=== PATIENT | female | born 1980 | race Caucasian/White ===

== ENCOUNTER 2024-07-26 20:41 | Emergency (ER) | payer MEDICAID, SELFPAY ==
[2024-07-26 21:31] VITALS: BP 130/81; PULSE 72; RESP 18; TEMP 37; O2SAT 100
--- NOTE | 2024-07-26 21:40 | EDNOTE_ITS ---
<Statement entered by Talita Hernandez MD - 08/06/24 11:51> As co-signing physician, I was present and available for consult prn. I concur with the plan and care as documented by the midlevel provider. ED Dental RME/HPI General Chief complaint: Dental/Oral/Throat Stated complaint: TOOTACHE Time Seen by Provider: 07/26/24 21:38 Source: patient Arrival date/time: 07/26/24 20:41 43-year-old female presents emergency department complaining of tooth infection that is been ongoing for several days and is awaiting visit with dentist. Mode of arrival: ambulatory Limitations: no limitations Related Data Previous Rx's ?Medication ?Instructions ?Recorded amoxicillin 875 mg-potassium 1 tab PO BID 7 days #14 tabs 07/26/24 clavulanate 125 mg tablet ibuprofen 600 mg tablet 600 mg PO Q8H PRN pain #20 tabs 07/26/24 Allergies Allergy/AdvReac Type Severity Reaction Status Date / Time tramadol Allergy Verified 07/26/24 20:45 Review of Systems Review of Systems Systems Reviewed: All systems reviewed, normal except as documented Constitutional Constitutional: Reports system reviewed and no additional complaints, except as documented, Denies body ache(s), Denies chills and Denies fever(s) Eyes Eyes: Reports system reviewed and no additional complaints, except as documented and Denies change in vision ENT Ears, Nose, Mouth, and Throat: Reports system reviewed and no additional complaints, except as documented, Denies disequilibrium, Denies dizziness, Reports mouth pain, Denies sore throat, Denies vertigo and Reports other (tooth pain) Cardiovascular Cardiovascular: Reports system reviewed and no additional complaints, except as documented, Denies chest pain and Denies dyspnea Respiratory Respiratory: Reports system reviewed and no additional complaints, except as documented, Denies chest congestion, Denies cough and Denies dyspnea Gastrointestinal Gastrointestinal: Reports system reviewed and no additional complaints, except as documented, Denies abdominal pain, Denies nausea and Denies vomiting Musculoskeletal Musculoskeletal: Reports system reviewed and no additional complaints, except as documented, Denies abnormal gait and Denies arthralgias Integumentary/Breasts Skin/Breast: Reports system reviewed and no additional complaints, except as documented, Denies erythema, Denies rash and Denies wounds Neurologic Neurologic: Reports system reviewed and no additional complaints, except as documented, Denies abnormal gait, Denies disequilibrium, Denies dizziness and Denies vertigo Past Medical History Social History SMOKING STATUS: Current every day smoker ED Exam General Limitations: Present no limitations General appearance: Present alert and in no apparent distress Head Head exam: Present atraumatic Eye Eye exam: Present normal appearance, PERRL and EOMI ENT ENT exam: Present normal exam, normal oropharynx and mucous membranes moist Expanded ENT Exam Teeth exam: Present dental caries and gingival swelling Neck Neck exam: Present normal inspection, full ROM and trachea midline Chest Chest inspection: Present normal inspection and symmetric chest wall rise Respiratory Respiratory exam: Present normal lung sounds bilaterally Cardiovascular Cardiovascular exam: Present regular rate, normal rhythm and normal heart sounds Abdominal Exam Abdominal exam: Present soft and normal bowel sounds Extremities Exam Extremities exam: Present normal inspection and full ROM Back Exam Back exam: Present normal inspection and full ROM Neurological Exam Neurological exam: Present alert, oriented X3 and CN II-XII intact Psychiatric Psychiatric exam: Present normal affect and normal mood Skin Skin exam: Present warm, dry, intact and normal color Course Quality Measures none Orders Category Date Time Status Amoxicillin/Pot Clav 875 [Augmentin 875] Med 07/26/24 21:41 Discontinued 1 tab PO X1 ONE Ketorolac Inj [Toradol Inj] Med 07/26/24 21:41 Discontinued 30 mg IM X1 ONE Vital Signs Vital signs: Vital Signs Temperature 98.6 F 07/26/24 21:31 Pulse Rate 72 07/26/24 21:31 Respiratory Rate 18 07/26/24 21:31 Blood Pressure 130/81 07/26/24 21:31 Pulse Oximetry (%) 100 07/26/24 21:31 Oxygen Delivery Method Room Air 07/26/24 21:31 100% room air within normal limits Dental / Oral MDM Narrative MDM Narrative:: 43-year-old female presents emergency department complaining of tooth infection that is been ongoing for several days and is awaiting visit with dentist. Patient appears nontoxic and hemodynamically stable. On exam patient does have dental caries with gingival swelling from infected tooth. Patient given antibiotics instructed to follow-up with dentist upon discharge and return to emergency department for any worsening symptoms or as needed. Patient data External records reviewed:: [facility] previous records Clinical information provided by:: patient Social determinants that could affect healthcare access:: none Patient has the following chronic illnesses:: See chart How is presenting disease/condition affected by chronic disease/condition?: uneffected by Evaluation data The following diagnostics were reviewed and interpreted by me:: other (specify) (N/A) Lab and/or radiology exams considered but not ordered:: N/A Interpretation Summary: N/A Medications / Prescriptions Medications or Prescriptions considered but not ordered:: Ordered Medication administrations:: Medication Administration History Discontinued Medications Amoxicillin/Clavulanate Potassium (Amoxicillin/Pot Clav 875 Tablet) 1 tab PO X1 ONE Stop: 07/26/24 21:42 Last Admin: 07/26/24 22:06 Dose: 1 tab Documented By: Ketorolac Tromethamine (Ketorolac Inj 60 Mg/2 Ml Vial) 30 mg IM X1 ONE Stop: 07/26/24 21:42 Last Admin: 07/26/24 22:06 Dose: 30 mg Documented By: Given Consultations Consultation(s) initiated? (list below): No Diagnosis Dental Differential Diagnosis: gingival abscess, dental caries, toothache, dental abscess, fracture of tooth and aphthous ulcer Most likely diagnosis given after review of the tests above:: Infected tooth Admission Indicated Admission indicated?: not indicated Admission Request Was there a request for admission?: No Disposition Plan Disposition Plan: Discharge Discharge Attestation Discharge Attestation: The patient and all family members were given an opportunity to ask questions and understood the discharge instructions. Discharge instructions specifically effects, indications for sooner follow up or return to the emergency department, and the expected course of current diagnosis. Patient condition: Stable Discharge Plan Plan Patient Disposition: HOME (Self Care) Disposition Comment: Stable Prescriptions/Referrals Prescriptions/Med Rec: New amoxicillin-pot clavulanate 875-125 mg tablet 1 tab PO BID 7 Days Qty: 14 0RF ibuprofen 600 mg tablet 600 mg PO Q8H PRN (Reason: pain) Qty: 20 0RF Problem List Clinical Impression: Infected tooth Patient/Caregiver Discharge Instructions Discharge Activity: activity as tolerated Education Materials: ED Dental Abscess Additional Instructions: Take medication as prescribed. Follow-up with dentist as discussed upon discharge. Return to emergency department for any worsening symptoms or as needed. Print Language: French Stand Alone Forms: [employer] Award Info., Patient Portal Info Letter PA/BRANDS EDITOR Supervising Physician PA/BRANDS EDITOR Supervising Physician: Dr. Hernandez
[2024-07-26] MEDS: AMOXICILLIN/POT CLAV 875 TABLET 1 TAB PO (22:06)
[2024-07-26] MEDS: KETOROLAC INJ 60 MG/2 ML VIAL 30 MG IM (22:06)
== END 2024-07-26 22:15 | disposition home or self-care (01) ==
LOC: SERX 22:19
PROVIDERS: Emergency Provider Emergency Medicine; PCP Family Medicine
DX: K04.7 Periapical abscess without sinus (principal)
CPT/HCPCS: 96372; 99283; J1885; A9270

== ENCOUNTER 2024-11-30 22:35 | Emergency (ER) | payer MEDICAID, SELFPAY ==
[2024-11-30 22:38] VITALS: BMI 39.1
--- NOTE | 2024-11-30 23:05 | PD.EDDENTL ---
ED Dental RME/HPI General Chief complaint: Dental/Oral/Throat Stated complaint: TOOTHACHE Time Seen by Provider: 11/30/24 23:01 Arrival date/time: 11/30/24 22:35 43 year old female present to emergency room with c/o of dental pain for 1 day. LOCATION: teeth SEVERITY: Symptoms are described as being severe with limitations on activities of daily living CONTEXT: The patient is unable to identify any inciting events. DURATION/TIMING: The symptoms started approximately 1 day ASSOCIATED SYMPTOMS: The patient is unable to identify any other associated symptoms. MODIFYING FACTORS: The patient is unable to identify any alleviating or aggravating symptoms. Patient denies fever, chills, difficulty swallowing, shortness of breath, voice changes, sore throat REVIEW OF SYSTEMS: See History of Present Illness - with the exception of those mentioned in the history of present illness, all other systems reviewed and reported as negative GENERAL: In general the patient is awake, interactive, in an emergency department gurney. HEAD/EYES/EARS/NOSE/THROAT: teeth/gingva poor condition. normo-cephalic, atraumatic, mucus membranes are moist, anicteric, palpebral conjunctiva is pink, trachea is midline. NEUROLOGICAL: cranio-facial features are symmetric, moves all four extremities equally without obvious limitations or weakness. EXTREMITY: no tenderness to palpation over the long bones or large joints of the bilateral upper and lower extremities, no joint swelling, no joint erythema, no signs of trauma, no unilateral leg swelling and no peripheral edema. SKIN: warm, dry, well-perfused, no jaundice, no rash, no telangiectasias or petechia. PSYCH: calm, cooperative, no evidence of psychosis or agitation Related Data Previous Rx's ?Medication ?Instructions ?Recorded ibuprofen 600 mg tablet 600 mg PO Q8H PRN pain #20 tabs 07/26/24 clindamycin HCl 300 mg capsule 300 mg PO Q6H 10 days #40 caps 11/30/24 (Cleocin HCl) Allergies Allergy/AdvReac Type Severity Reaction Status Date / Time tramadol Allergy Verified 11/30/24 22:36 Course Course Course Narrative: Presentation consistent with dental pain of tooth right lower? No evidence of Chriss's Angina, large abscess pocket, requirement for emergent extraction, or other complications. Provided prescription for clindamycin Patient informed to follow up with local dentist. Return to ER if pain uncontrolled, abscess that drains purulent fluid, high fevers, trouble swallowing, or other concerns.? Plan:? Discharge from ED? F/U with local dentist Informed to return to ED if has new or worsening symptoms. Expressed understanding of and agreement with plan and all questions answered. Quality Measures none Orders Category Date Time Status ACETAMINOPHEN w/COD 300-30 [Tylenol w/Cod #3] Med 11/30/24 23:13 Once 1 tab PO X1 ONE Clindamycin [Cleocin] Med 11/30/24 23:13 Once 300 mg PO X1 ONE Vital Signs Vital signs: Vital Signs Temperature 98.2 F 11/30/24 23:06 Pulse Rate 97 11/30/24 23:06 Respiratory Rate 18 11/30/24 23:06 Blood Pressure 128/85 H 11/30/24 23:06 Pulse Oximetry (%) 98 11/30/24 23:06 Oxygen Delivery Method Room Air 11/30/24 23:06 Dental / Oral Patient data External records reviewed:: [facility] previous records Clinical information provided by:: patient Social determinants that could affect healthcare access:: none Patient has the following chronic illnesses:: dental problems How is presenting disease/condition affected by chronic disease/condition?: exacerbated by Evaluation data The following diagnostics were reviewed and interpreted by me:: other (specify) (na) Lab and/or radiology exams considered but not ordered:: na Interpretation Summary: na Medications / Prescriptions Medications or Prescriptions considered but not ordered:: na Medication administrations:: Medication Administration History Acetaminophen/Codeine Phosphate (Acetaminophen W/Cod 300-30 Tablet) 1 tab PO X1 ONE Stop: 11/30/24 23:14 Clindamycin HCl (Clindamycin 150 Mg Capsule) 300 mg PO X1 ONE Stop: 11/30/24 23:14 as stated above Consultations Consultation(s) initiated? (list below): No Diagnosis Most likely diagnosis given after review of the tests above:: dental pain/infection Admission Indicated Admission indicated?: not indicated Admission Request Was there a request for admission?: No Disposition Plan Disposition Plan: Discharge Discharge Attestation Discharge Attestation: The patient and all family members were given an opportunity to ask questions and understood the discharge instructions. Discharge instructions specifically effects, indications for sooner follow up or return to the emergency department, and the expected course of current diagnosis. Patient condition: Stable Discharge Plan Plan Patient Disposition: HOME (Self Care) Health Concerns: Follow with PMD as directed Take tylenol or motrin as need Return to ED if sx worsen Prescriptions/Referrals Prescriptions/Med Rec: New clindamycin HCl [Cleocin HCl] 300 mg capsule 300 mg PO Q6H 10 Days Qty: 40 0RF No Action ibuprofen 600 mg tablet 600 mg PO Q8H PRN (Reason: pain) Qty: 20 0RF Referrals: No Primary/Family,Physician [Primary Care Provider] - In 1 week Problem List Clinical Impression: Toothache Patient/Caregiver Discharge Instructions Education Materials: ED Dental Pain Print Language: Upper Sorbian Stand Alone Forms: [employer] Award Info., Patient Portal Info Letter
[2024-11-30 23:06] VITALS: BP 128/85; PULSE 97; RESP 18; TEMP 36.8; O2SAT 98
[2024-11-30] MEDS: CLINDAMYCIN 150 MG CAPSULE 300 MG PO (23:20)
[2024-11-30] MEDS: ACETAMINOPHEN w/COD 300-30 TABLET 1 TAB PO (23:20)
== END 2024-11-30 23:22 | disposition home or self-care (01) ==
PROVIDERS: Emergency Provider Emergency Medicine
DX: K08.89 Other specified disorders of teeth and supporting structures (principal)
CPT/HCPCS: 99282; A9270

== ENCOUNTER 2025-04-23 19:11 | Emergency (ER) | payer MEDICAID, SELFPAY ==
[2025-04-23 19:14] VITALS: BMI 36.1
[2025-04-23 19:40] VITALS: BP 123/78; PULSE 82; RESP 18; TEMP 36.9; O2SAT 98
--- NOTE | 2025-04-23 19:56 | PD.EDADULT ---
ED General RME/HPI General Chief complaint: General Adult/Misc Complain Stated complaint: QUESTION ABOUT TESTERONE SHOT Time Seen by Provider: 04/23/25 19:51 Arrival date/time: 04/23/25 19:11 RME / HPI RME / HPI narrative: 44-year-old female patient was brought in for evaluation regarding possible accidental injection of air into the muscle. Patient was giving herself testosterone injection and realized that there is a small air bubble. Patient complained of mild tenderness. No redness noted denies any other complaints no shortness of breath no chest pain. It happened several minutes prior to ER visit. Related Data Previous Rx's ?Medication ?Instructions ?Recorded ibuprofen 600 mg tablet 600 mg PO Q8H PRN pain #20 tabs 07/26/24 Allergies Allergy/AdvReac Type Severity Reaction Status Date / Time tramadol Allergy Verified 11/30/24 22:36 Review of Systems Review of Systems Narrative Review of Systems: Review of system reviewed and within normal limits except mentioned in HPI ED Exam Narrative Physical exam: VITAL SIGNS: Reviewed. GENERAL APPEARANCE: Alert and interactive, follows commands, no acute distress, HEAD AND FACE: Non-traumatic. ENT: PERRL, pink conjunctivitis, eyelid no trauma, Mucous membrane moist. NECK: Supple, nontender, no nuchal rigidity. CHEST: No tenderness, no crepitus, no paradoxical movement, no retractions. LUNGS: Clear, well ventilated, symmetric, no rales, no wheezing, no ronchi, no stridor, good breath sounds bilaterally. HEART: Regular rate, regular rhythm, no murmur, no gallops. ABDOMEN: Soft, positive bowel sounds, nondistended, no guarding, nontender, no rebound, no masses, RECTAL: Deferred. GENITAL: Deferred. NEUROLOGICAL: Gross motor function intact sensory function intact, Appropriate for age. MUSCULOSKELETAL: low back nontender, full range of motion. EXTREMITIES: Nontender, full range of motion. SKIN: Color pink, dry, no rash, no lacerations, no abrasions, no contusions. LYMPHATICS: Deferred. Course Quality Measures none Vital Signs Vital signs: Vital Signs Temperature 98.5 F 04/23/25 19:40 Pulse Rate 82 04/23/25 19:40 Respiratory Rate 18 04/23/25 19:40 Blood Pressure 123/78 04/23/25 19:40 Pulse Oximetry (%) 98 04/23/25 19:40 Oxygen Delivery Method Room Air 04/23/25 19:40 Discharge Plan Plan Patient Disposition: HOME (Self Care) Discharge Disposition comment: Stable Prescriptions/Referrals Prescriptions/Med Rec: No Action ibuprofen 600 mg tablet 600 mg PO Q8H PRN (Reason: pain) Qty: 20 0RF Problem List Clinical Impression: Injection site irritation Patient/Caregiver Discharge Instructions Discharge Activity: activity as tolerated Education Materials: Post Injection Inflammation Additional Instructions: Thank you for the opportunity for serving you today. You are stable for discharged . You are advised to: Follow-up with your PCP in 1 to 2 days Return to ED for worsening of symptoms You can apply ice as needed for 15 minutes Do not worry about small air amount injected in your muscle it will not be a problem Print Language: Hebrew Stand Alone Forms: [employer] Award Info., Patient Portal Info Letter PA/GREGORIO Supervising Physician PA/GREGORIO Supervising Physician: MD Brenda MDM Narrative MDM hospital course: 44-year-old female patient was brought in for evaluation regarding possible accidental injection of air into the muscle. Patient was giving herself testosterone injection and realized that there is a small air bubble. Patient complained of mild tenderness. No redness noted denies any other complaints no shortness of breath no chest pain. It happened several minutes prior to ER visit. Plan of care discussed with the patient I told him that it would not give him a problem. Patient stable for discharge
== END 2025-04-23 20:15 | disposition home or self-care (01) ==
PROVIDERS: Emergency Provider Emergency Medicine
DX: T80.90XA Unspecified complication following infusion and therapeutic injection, initial encounter (principal)
CPT/HCPCS: 99281

== ENCOUNTER → 2025-06-24 | Outpatient (CLI) | payer OTHER, SELFPAY ==
--- NOTE | 2025-06-24 14:25 | XR_ITS ---
Examination: Knee, left, 3 views Technique: Knee AP, lateral, oblique 3 views Date and time of exam: June 24, 2025, 1444 hours INDICATION: Patient fell out of a truck 2 days ago with injury to the knee, knee pain. FINDINGS: No fracture or dislocation Small knee effusion No foreign body IMPRESSION: No fracture or dislocation
--- NOTE | 2025-06-24 14:25 | XR_ITS ---
EXAMINATION: Ankle, left 3 views. Technique: Ankle AP, oblique, lateral 3 views Date and time of exam: June 24, 2025: 1444 hours INDICATIONS: Patient fell out of a truck 2 days ago with injury to the ankle, ankle pain. FINDINGS: No acute fracture No dislocation Mild narrowing tibiotalar joint Mild osteoarthritis talonavicular joint IMPRESSION: Mild osteoarthritis No fracture
== END | disposition home or self-care (01) ==
PROVIDERS: Referring Provider Family Medicine; Visit Provider Family Medicine
DX: S89.92XA Unspecified injury of left lower leg, initial encounter (principal); S99.912A Unspecified injury of left ankle, initial encounter; W19.XXXA Unspecified fall, initial encounter; M19.072 Primary osteoarthritis, left ankle and foot
CPT/HCPCS: 73562; 73610